=== PATIENT | male | born 1995 | race African-American/Black ===

== ENCOUNTER 2020-04-25 16:03 | Inpatient (IN) | payer MEDICAID ==
[~2020-04-25] VITALS: Ht 177.8 cm; Wt 62.3 kg
[2020-04-25 16:53] LABS: Eosinophils # (auto) 0 10 ^3/uL (0-0.8); Lymphocytes # (auto) 1.1 10 ^3/uL (0.4-5.4); Neutrophils # (auto) 16.5 10 ^3/uL (1.6-8.6)
[2020-04-25 16:55] LABS: Basophils # (auto) 0.2 10 ^3/uL (0-0.2); Basophils % (auto) 0.8 % (0.0-2.0); Hematocrit 35.8 % (41.0-53.0); Hemoglobin 11.8 g/dL (13.5-17.5); Lymphocytes % (auto) 5.5 % (10.0-50.0); Mean Corpuscular Hemoglobin 26.7 pg (28.0-32.0); Mean Corpuscular Hgb Conc. 32.9 g/dL (32.0-36.0); Mean Corpuscular Volume 81.1 fL (80.0-100.0); Monocytes # (auto) 1.8 10 ^3/uL (0-1.3); Monocytes % (auto) 9.3 % (0.0-12.0); Neutrophils % (auto) 84.4 % (37.0-80.0); Red Blood Cells 4.41 10^6/uL (4.5-5.90); Red Cell Distribution Width 13.3 % (11.8-14.3); White Blood Cell 19.6 10^3/uL (4.4-10.8)
[2020-04-25] MEDS ORDERED: SODIUM CHLORIDE 0.9% 1,000 ML IVB ONE (17:03)
[2020-04-25 17:04] LABS: Platelet Count (auto) 819 10^3/uL (140-450)
[2020-04-25 17:08] LABS: Albumin 3.8 g/dL (3.4-5.0); Calcium 10.6 mg/dL (8.5-10.1); Potassium 3.7 mmol/L (3.5-5.1)
[2020-04-25 17:11] LABS: BUN/Creatinine Ratio 16.2; Bilirubin, Total 0.7 mg/dL (0.2-1.0); Total Protein 10.1 g/dL (6.4-8.2)
[2020-04-25] MEDS ORDERED: ONDANSETRON HCL 4 MG/2 ML VIAL IV ONE (17:15)
[2020-04-25 17:40] LABS: Magnesium 2.5 mg/dL (1.6-2.6)
[2020-04-25 17:45] LABS: INR 1.18 (0.9-1.15); Partial Thromboplastin Time 27.9 sec (23.64-32.05)
[2020-04-25] MEDS ORDERED: MORPHINE SULF INJ 2 MG/ML SYRINGE 1ML IV ONE (18:45)
[2020-04-25] MEDS ORDERED: PROMETHAZINE HCL 25 MG/ML 1ML IV ONE (18:45)
[2020-04-25] MEDS ORDERED: cefTRIAXone 1GM/50ML D5W 50 ML IV ONE (20:30)
[2020-04-26] MEDS ORDERED: HYDROcodone-ACET 5/325MG TAB PO PRN (01:30)
[2020-04-26] MEDS ORDERED: DOCUSATE SOD 100 MG CAP PO PRN (01:30)
[2020-04-26] MEDS ORDERED: LORazepam 0.5 MG TAB PO PRN (01:30)
[2020-04-26] MEDS ORDERED: ACETAMINOPHEN 325 MG TAB PO PRN (01:30)
[2020-04-26] MEDS: SODIUM CHLORIDE 0.9% 1,000 ML IV SCH ×3 (02:40→13:45)
[2020-04-26 05:26] LABS: Urine Bacteria None Seen /hpf (None Seen); Urine WBC None Seen /hpf (0 - 3)
[2020-04-26 05:28] LABS: Urine Blood Normal /uL (Negative); Urine Specific Gravity 1.038 (1.001-1.035)
[2020-04-26 05:30] LABS: Urine Mucus FEW (None Seen); Urine Sperm Few /hpf (None Seen)
[2020-04-26] MEDS: MORPHINE SULF INJ 2 MG/ML SYRINGE 1ML IV PRN ×4 (06:17→23:55)
[2020-04-26] MEDS: ONDANSETRON HCL 4 MG/2 ML VIAL IV PRN ×4 (06:17→23:55)
[2020-04-26 06:43] LABS: Basophils # (auto) 0.1 10 ^3/uL (0-0.2); Eosinophils # (auto) 0.1 10 ^3/uL (0-0.8); Hemoglobin 9.6 g/dL (13.5-17.5); Lymphocytes # (auto) 1.6 10 ^3/uL (0.4-5.4); Nucleated Red Blood Cells % 0.1 %
[2020-04-26] MEDS: metroNIDAZOLE 500MG/100ML 100 ML IV SCH ×4 (06:45→23:54)
[2020-04-26 06:46] LABS: Basophils % (auto) 0.7 % (0.0-2.0); Eosinophils % (auto) 1.1 % (0.0-7.0); Hematocrit 28.9 % (41.0-53.0); Lymphocytes % (auto) 12.7 % (10.0-50.0); Mean Corpuscular Hemoglobin 26.8 pg (28.0-32.0); Mean Corpuscular Hgb Conc. 33.1 g/dL (32.0-36.0); Mean Corpuscular Volume 80.9 fL (80.0-100.0); Monocytes # (auto) 1.9 10 ^3/uL (0-1.3); Monocytes % (auto) 15.4 % (0.0-12.0); Neutrophils # (auto) 8.6 10 ^3/uL (1.6-8.6); Neutrophils % (auto) 70.1 % (37.0-80.0); Platelet Count (auto) 651 10^3/uL (140-450); Red Blood Cells 3.57 10^6/uL (4.5-5.90); Red Cell Distribution Width 13.7 % (11.8-14.3); White Blood Cell 12.3 10^3/uL (4.4-10.8)
[2020-04-26 07:07] LABS: BUN/Creatinine Ratio 19.2; Potassium 3.7 mmol/L (3.5-5.1)
[2020-04-26 08:32] VITALS: BP 140/80
[2020-04-26] MEDS ORDERED: HYDR-4833 PO (08:44)
[2020-04-26] MEDS ORDERED: DOCU-94 PO (08:44)
[2020-04-26 09:00] VITALS: BP 140/80
[2020-04-26 13:00] VITALS: BP 115/65
[2020-04-26] MEDS ORDERED: PANTOPRAZOLE 40 MG TAB PO ONE (13:45)
[2020-04-26 14:41] LABS: Alcohol, Urine < 3.0 mg/dL (0-10); Amphetamine Screen, Urine NEGATIVE (NEGATIVE); Benzodiazephine Screen, Urine NEGATIVE (NEGATIVE); Cocaine Screen, Urine NEGATIVE (NEGATIVE); Opiate Scree,Urine POSITIVE (NEGATIVE); Phencyclidine Screen, Urine NEGATIVE (NEGATIVE)
[2020-04-26 14:49] LABS: Barbiturate Scree,Urine NEGATIVE (NEGATIVE); Cannabinoid Screen, Urine POSITIVE (NEGATIVE)
[2020-04-26 17:26] VITALS: BP 148/82
[2020-04-26 22:00] VITALS: BP 131/78
[2020-04-27] MEDS: SODIUM CHLORIDE 0.9% 1,000 ML IV SCH (04:06)
[2020-04-27 05:39] VITALS: BP 127/73
[2020-04-27] MEDS: metroNIDAZOLE 500MG/100ML 100 ML IV SCH ×2 (06:07→12:00)
[2020-04-27] MEDS: MORPHINE SULF INJ 2 MG/ML SYRINGE 1ML IV PRN ×2 (06:08→10:34)
[2020-04-27] MEDS: ONDANSETRON HCL 4 MG/2 ML VIAL IV PRN ×2 (06:08→10:33)
[2020-04-27 06:18] LABS: Basophils # (auto) 0.1 10 ^3/uL (0-0.2); Basophils % (auto) 0.5 % (0.0-2.0); Eosinophils # (auto) 0.5 10 ^3/uL (0-0.8); Eosinophils % (auto) 3.5 % (0.0-7.0); Hematocrit 29.4 % (41.0-53.0); Hemoglobin 9.6 g/dL (13.5-17.5); Lymphocytes # (auto) 1.7 10 ^3/uL (0.4-5.4); Lymphocytes % (auto) 12.7 % (10.0-50.0); Mean Corpuscular Hemoglobin 26.8 pg (28.0-32.0); Mean Corpuscular Hgb Conc. 32.8 g/dL (32.0-36.0); Mean Corpuscular Volume 81.8 fL (80.0-100.0); Monocytes # (auto) 1.3 10 ^3/uL (0-1.3); Monocytes % (auto) 10.1 % (0.0-12.0); Neutrophils # (auto) 9.7 10 ^3/uL (1.6-8.6); Neutrophils % (auto) 73.2 % (37.0-80.0); Platelet Count (auto) 668 10^3/uL (140-450); Red Cell Distribution Width 13.4 % (11.8-14.3); White Blood Cell 13.3 10^3/uL (4.4-10.8)
[2020-04-27 06:31] LABS: Potassium 3.9 mmol/L (3.5-5.1)
[2020-04-27 06:44] LABS: Albumin 2.6 g/dL (3.4-5.0); BUN/Creatinine Ratio 13.2; Bilirubin, Total 0.4 mg/dL (0.2-1.0); Calcium 8.9 mg/dL (8.5-10.1); Magnesium 2.2 mg/dL (1.6-2.6); Total Protein 7.3 g/dL (6.4-8.2)
[2020-04-27 08:00] VITALS: BP 153/85
[2020-04-27 09:00] VITALS: BP 153/85
[2020-04-27] MEDS ORDERED: PANTOPRAZOLE 40 MG TAB PO SCH (10:00)
[2020-04-27 11:07] LABS: Hepatitis B Surface Antibody Negative
[2020-04-27 11:35] LABS: Hepatitis A Total Antibody Positive
[2020-04-27 12:44] LABS: Hepatitis B Core Total AB Negative; Hepatitis B Surface Antigen Negative (Negative); Hepatitis C Antibody Negative (Negative)
[2020-04-27 13:00] VITALS: BP 132/76
== END 2020-04-27 13:40 | disposition left against medical advice (07) | DRG 251 ==
LOC: ER 16:03 → OVERFLOW 16:04 → WEST WING 04-26 08:29
PROVIDERS: ADMIT Hospitalist; ATTEND Internal Medicine Nephrology
DX: R10.9 Unspecified abdominal pain (principal); R65.10 Systemic inflammatory response syndrome (SIRS) of non-infectious origin without acute organ dysfunction; K58.9 Irritable bowel syndrome, unspecified; R71.0 Precipitous drop in hematocrit; Z53.29 Procedure and treatment not carried out because of patient's decision for other reasons; K59.00 Constipation, unspecified
CPT/HCPCS: 36415; 71250; 74176; 76700; 80048; 80053; 80061; 80307; 81001; 83036; 83605; 83690; 83735; 85025; 85610; 85730; 86704; 86706; 86708; 86803; 87040; 87081; 87340; 96361; 96365; 96366; 96375; G0378; J0696; J2405; J3490

== ENCOUNTER 2022-05-16 05:56 | Emergency (ER) | payer MEDICAID ==
[~2022-05-16] VITALS: Ht 177.8 cm; Wt 65.8 kg
[2022-05-16 05:56] VITALS: BP 153/96
[~2022-05-16 05:56] MED LIST: DOCU-94 PO; HYDR-4833 PO
[2022-05-16] MEDS ORDERED: PROCHLORPERAZINE EDISYLATE 5 MG/ML 2ML VIAL IV ONE (07:30)
[2022-05-16] MEDS ORDERED: SODIUM CHLORIDE 0.9% 1,000 ML IV ONE (07:30)
[2022-05-16 08:35] LABS: Basophils # (auto) 0.1 10 ^3/uL (0-0.2); Basophils % (auto) 0.8 % (0.0-2.0); Eosinophils # (auto) 0 10 ^3/uL (0-0.8); Hemoglobin 18.8 g/dL (13.5-17.5); Lymphocytes # (auto) 2.3 10 ^3/uL (0.4-5.4); Lymphocytes % (auto) 17.5 % (10.0-50.0); Mean Corpuscular Hemoglobin 26.6 pg (28.0-32.0); Mean Corpuscular Volume 80.8 fL (80.0-100.0); Monocytes # (auto) 1.7 10 ^3/uL (0-1.3); Monocytes % (auto) 12.7 % (0.0-12.0); Neutrophils # (auto) 9.2 10 ^3/uL (1.6-8.6); Nucleated Red Blood Cells % 0.1 %; Red Blood Cells 7.06 10^6/uL (4.5-5.90); Red Cell Distribution Width 13.8 % (11.8-14.3); White Blood Cell 13.3 10^3/uL (4.4-10.8)
[2022-05-16 08:44] LABS: Albumin 5.4 g/dL (3.4-5.0); Calcium 10.1 mg/dL (8.5-10.1); Potassium 3.8 mmol/L (3.5-5.1)
[2022-05-16 08:49] LABS: BUN/Creatinine Ratio 30.2; Bilirubin, Total 1.1 mg/dL (0.2-1.0); Total Protein 10.3 g/dL (6.4-8.2)
== END 2022-05-16 12:00 | disposition left against medical advice (07) ==
LOC: ER 05:56
DX: E86.0 Dehydration (principal); R10.84 Generalized abdominal pain
CPT/HCPCS: 36415; 74176; 80053; 85025

== ENCOUNTER 2022-05-17 15:22 | Emergency (ER) | payer MEDICAID ==
[~2022-05-17] VITALS: Ht 177.8 cm; Wt 68.0 kg
[2022-05-17 16:00] VITALS: BP 130/88
[2022-05-17] MEDS ORDERED: PROCHLORPERAZINE EDISYLATE 5 MG/ML 2ML VIAL IV ONE (16:15)
[2022-05-17] MEDS ORDERED: PANTOPRAZOLE 40 MG/10 ML VIAL INJ IV ONE (16:15)
[2022-05-17] MEDS ORDERED: SODIUM CHLORIDE 0.9% 1,000 ML IVB ONE (16:15)
[2022-05-17 16:34] LABS: Basophils # (auto) 0.1 10 ^3/uL (0-0.2); Eosinophils # (auto) 0 10 ^3/uL (0-0.8); Mean Corpuscular Hemoglobin 26.3 pg (28.0-32.0); White Blood Cell 12.4 10^3/uL (4.4-10.8)
[2022-05-17 16:37] LABS: Basophils % (auto) 0.5 % (0.0-2.0); Eosinophils % (auto) 0.2 % (0.0-7.0); Hematocrit 54.5 % (41.0-53.0); Hemoglobin 17.4 g/dL (13.5-17.5); Lymphocytes # (auto) 2.8 10 ^3/uL (0.4-5.4); Lymphocytes % (auto) 22.1 % (10.0-50.0); Mean Corpuscular Hgb Conc. 31.9 g/dL (32.0-36.0); Mean Corpuscular Volume 82.5 fL (80.0-100.0); Monocytes # (auto) 1.9 10 ^3/uL (0-1.3); Monocytes % (auto) 15.1 % (0.0-12.0); Neutrophils # (auto) 7.7 10 ^3/uL (1.6-8.6); Neutrophils % (auto) 62.1 % (37.0-80.0); Red Blood Cells 6.61 10^6/uL (4.5-5.90); Red Cell Distribution Width 13.7 % (11.8-14.3)
[2022-05-17] MEDS ORDERED: MORPHINE SULFATE 4 MG/ML SYR/VIAL IV ONE (16:45)
[2022-05-17 16:50] LABS: Albumin 4.7 g/dL (3.4-5.0); BUN/Creatinine Ratio 38.6; Calcium 9.2 mg/dL (8.5-10.1); Potassium 3.4 mmol/L (3.5-5.1)
[2022-05-17 16:53] LABS: Total Protein 8.7 g/dL (6.4-8.2)
== END 2022-05-17 16:55 | disposition left against medical advice (07) ==
LOC: ER 15:22 → EDBD 15:22 → EDUNIT# 15:22 → ER 16:55
DX: F12.188 Cannabis abuse with other cannabis-induced disorder (principal); Z53.29 Procedure and treatment not carried out because of patient's decision for other reasons
CPT/HCPCS: 36415; 80053; 83690; 85025; 93005; 96361; 96374; 96375; 99284; C9113; J0780; J7030

== ENCOUNTER 2022-11-23 12:56 | Emergency (ER) | payer MEDICAID ==
[~2022-11-23] VITALS: Ht 177.8 cm; Wt 64.0 kg
[2022-11-23 13:19] VITALS: BP 125/73
[2022-11-23] MEDS ORDERED: IBUP600T27 PO (14:48)
[2022-11-23] MEDS ORDERED: BACDST PO (14:48)
== END 2022-11-23 14:59 | disposition home or self-care (01) ==
LOC: ER 12:56
DX: R60.9 Edema, unspecified (principal); F12.10 Cannabis abuse, uncomplicated